=== PATIENT | female | born 1965 | race Caucasian/White ===

== ENCOUNTER → 2016-10-09 | Outpatient (CLI) | payer MEDICAID ==
--- NOTE | 2016-10-09 13:18 | DX ---
Left Hand, Three Views History: Pain post trauma. Injury involves third metacarpal phalangeal and PIP joint and fourth metac arpal phalangeal joint Findings: No fracture or dislocation is identified. There is degenerative cyst formation involving th e heads of the third metacarpal and fourth and fifth proximal phalanges. Impression: Nothing acute identified.
== END ==
LOC: CLAB 11:23
PROVIDERS: ATTEND Family Medicine
DX: M79.642 Pain in left hand (principal)
CPT/HCPCS: 73130-PO

== ENCOUNTER → 2016-12-25 | Outpatient (CLI) | payer MEDICAID | LOC: CIMAGING 11:04 | PROVIDERS: ATTEND Family Medicine | DX: M25.552 Pain in left hip (principal) | CPT/HCPCS: 73502-PO ==

== ENCOUNTER 2017-04-07 12:20 | Emergency (ER) | payer MEDICAID ==
[2017-04-07 12:28] VITALS: BP 115/70; PULSE 69; RESP 18; TEMP 98; O2SAT 97
[2017-04-07] MEDS ORDERED: diphenhydrAMINE 25 MG CAP PO ONE (12:39)
[2017-04-07] MEDS ORDERED: FAMOTIDINE 20 MG TAB PO ONE (12:39)
[2017-04-07] MEDS ORDERED: predniSONE 20 MG TAB PO ONE (12:39)
--- NOTE | 2017-04-07 12:52 | EDPHY ---
H & P Time Seen by Provider: 04/07/17 12:27 HPI/ROS: HPI Bee sting to left upper eyelid. 51-year-old female by private vehicle. She reports yesterday at 5:00 p.m. she was stung by a bee in the left upper medial eyelid and the mid nasal bridge. She presents to the emergency department with complaint of swelling of the left upper eyelid and swelling over her nasal bridge. She gives a history of having an allergy to bee stings no history of anaphylaxis. She states that the upper lid has swollen shut. She denies any ocular involvement. She reports that there was no change in vision prior to her upper lid swelling the eye shut. ROS: Constitutional: No fever, no chills. No weakness. Eyes: No discharge. No changes in vision. As above. ENT: No sore throat. No nasal congestion or rhinorrhea. Respiratory: No cough. No shortness of breath. Cardiac: No chest pain, no palpitations. Gastrointestinal: No abdominal pain, no vomiting, no diarrhea. Musculoskeletal: No back pain. No neck pain. No myalgias or arthralgias. Skin: No rashes. As above. Neurological: No headache. No focal weakness or altered sensation. Past medical history: Rheumatoid arthritis. Social history: Here by herself. Nonsmoker. Physical Exam: General Appearance: Alert, no distress. This patient is responding to questions appropriately and in full sentences. This patient appears well- hydrated and well-nourished. Eyes: Right eye, pupil is equal and round and reactive to light at 3-2 mm. Upper and lower lids of the right eye are unremarkable on gross inspection. The left upper lid is swollen significantly. The left lower lip has a small amount of edema. The swelling from the left upper lid tracks across the medial canthus this in over her nasal bridge. No associated erythema or warmth. The eye is swollen shut. I was unable to open it with gentle traction. No infraorbital paresthesia. No pain on extraocular movements. ENT, Mouth: Mucous membranes are moist. The pharyngeal tissues are unremarkable. No edema or swelling. No asymmetry suggestive of abscess. No erythema or exudates. Respiratory: There are no retractions, lungs are clear to auscultation with good air movement bilaterally. Cardiovascular: Regular rate and rhythm. No murmur. Neurological: Motor sensory function is grossly intact. Cranial nerves are normal. Gait is normal. Skin: Warm and dry, no rashes. Musculoskeletal: Neck is supple and nontender. No lymphadenopathy. No pain on flexion of the neck. Extremities are symmetrical. All joints range without pain or impingement. Psychiatric: No agitation. No depression. Database: EKG: Imaging: Procedures: Emergency department course: Vital signs reviewed and are normal. She does not present with anaphylaxis. Plan is to treat her with steroids and antihistamines. I also do not suspect infection at this time. She was given 60 mg of oral prednisone, 50 mg of oral Benadryl and 40 mg of oral Pepcid in the emergency department. I will send her home with prescriptions for these medications to be taken over the next 3 days. She feels comfortable going home and is in agreement with this plan. Follow- up and return to emergency department precautions discussed. All of her questions were answered. She was discharged in good condition. Differential Diagnosis: The differential diagnosis on this patient includes but is not limited to bee sting to left eye upper eyelid and nasal bridge with associated localized edema. Periorbital versus orbital cellulitis, retained foreign body unlikely. This represents a partial list of diagnoses considered. These considerations are based on history, physical exam, past history, reassessment and diagnostic testing. Smoking Status: Never smoked Constitutional: Initial Vital Signs Temperature (C) 36.6 C 04/07/17 12:25 Heart Rate 69 04/07/17 12:25 Respiratory Rate 18 04/07/17 12:25 Blood Pressure 115/70 04/07/17 12:25 O2 Sat (%) 97 04/07/17 12:25 O2 Delivery Mode Room Air Allergies/Adverse Reactions: No Known Allergies Allergy (Verified 08/12/14 17:06) Home Medications: Medication Instructions Recorded Miscellaneous Medical Supply [NO 1 ea MISC AD 03/24/13 HOME MEDS] SIMPONI 04/07/17 predniSONE [prednisone 20mg (RX)] 60 mg PO DAILY #9 tab 04/07/17 Departure - Departure Disposition: Home, Routine, Self-Care Clinical Impression: Bee sting to left upper eyelid, Bee sting Condition: Good Instructions: Insect Bite or Sting (ED) Additional Instructions: Read and follow provided instructions. Follow-up with your primary care physician in 1-2 days for re-evaluation. Ibuprofen dosin mg every 6 hours with meals for the next 3 days only. Pepcid: 40 mg twice daily, once in the morning and once in the evening for 3 days. This is an ledw-due-cocbctl medication. Benadryl: 50 mg every 6-8 hours for the next 3 days. This is an over-the- counter medication. Ibuprofen dosin mg every 6 hours with meals for the next 3 days only. Return to the emergency department for worsening swelling, pain in your eye, fever, or other serious concerns. Referrals: Tom Luke MD [Primary Care Provider] - As per Instructions Prescriptions: predniSONE [prednisone 20mg (RX)] 60 mg PO DAILY #9 tab
== END 2017-04-07 13:05 | disposition home or self-care (01) ==
LOC: CED 12:20
DX: T63.441A Toxic effect of venom of bees, accidental (unintentional), initial encounter (principal)

== ENCOUNTER → 2017-08-11 | Outpatient (CLI) | payer MEDICAID | LOC: CIMAGING 13:30 | PROVIDERS: ATTEND Family Medicine | DX: N63.22 Unspecified lump in the left breast, upper inner quadrant (principal) | CPT/HCPCS: 76641-PO; G0204 ==

== ENCOUNTER → 2017-09-21 | Outpatient (CLI) | payer MEDICAID | LOC: BMCIMAGING 16:06 | PROVIDERS: ATTEND Internal Medicine Rheumatology | DX: L40.59 Other psoriatic arthropathy (principal) ==

== ENCOUNTER 2018-06-05 14:29 | Emergency (ER) | payer MEDICAID ==
[2018-06-05] MEDS ORDERED: LET GEL TOPICAL 1 EA SYR TP ONE (15:15)
--- NOTE | 2018-06-05 15:20 | EDPHY ---
H & P Time Seen by Provider: 06/05/18 15:03 HPI/ROS: This patient presents with a wound infection to her foot my her report. She explains that 1 week ago while walking barefoot in her yd she open a metal gate that struck the top of her right foot causing an abrasion. Feeling at the wound was minor she did not bother to clean at initially. She reports that over the past 2 days the wound developed redness and 4/10 pain. She has been applying Neosporin and has cleaned it with some soapy water over the past couple days but has not given a thorough scrubbing she admits. She does not have any bony pain is had no difficulty walking. Today she had difficulty putting or boot because her some soft tissue swelling associated with the area of redness, warmth and discomfort. ROS: Constitutional: No fevers or chills. No fatigue Pulmonary: No complaints cardiovascular: No lightheadedness. GI: No nausea vomiting Neuro: No numbness or tingling 5 point review of symptoms is performed and otherwise negative with exception of pertinent positives and negatives listed in HPI and ROS Past Medical/Surgical History: Rheumatoid arthritis on Stelara with 1st dose of that medication Depo injection a few weeks ago Smoking Status: Never smoked Physical Exam: Physical Exam Vital signs are normal. General: No acute distress Lungs: No respiratory distress. Cardiac: Brisk capillary refill is intact throughout. Pulses are 2+ and symmetric in the affected extremity. Skin: No rash or pallor. Extremities: Atraumatic normal except for right foot exam Right foot: Patient has a superficial abrasion 5 mm in diameter subacute superficial surrounded by erythema and Rembrandt edema 2.5 cm in diameter warm to touch with no fluctuance. No underlying bony tenderness. Neuro: Alert and oriented with no sensorimotor deficits in the affected foot. Initial differential diagnosis: Foot cellulitis, atopic dermatitis, contusion Constitutional: Initial Vital Signs Temperature (C) 37.2 C 06/05/18 14:48 Heart Rate 74 06/05/18 14:48 Respiratory Rate 18 06/05/18 14:48 Blood Pressure 109/88 H 06/05/18 14:48 O2 Sat (%) 97 06/05/18 14:48 O2 Delivery Mode Room Air Allergies/Adverse Reactions: No Known Allergies Allergy (Verified 08/12/14 17:06) Home Medications: Medication Instructions Recorded Cephalexin [Keflex (*)] 500 mg PO TID #30 cap 06/05/18 Ustekinumab [Stelara] 06/05/18 MDM/Departure - MDM Medications Given: Discontinued Medications Tetracaine/Epinephrine/Lidocaine (Let Gel Topical) 1 ea TP EDNOW ONE Stop: 06/05/18 15:16 Last Admin: 06/05/18 15:43 Dose: 1 ea ED Course/Re-evaluation: Let solution is applied for anesthesia. This wound was then scrubbed by our tech. Bacitracin and a dressing were plan. I counseled patient regarding wound care Discussion: This patient presents with a superficial wound infection from an abrasion 1 week ago with risk factor for opportunistic infection of Stelara that she takes for rheumatoid arthritis. Patient is instructed in wound care and given instructions to return for any significant increase in redness, onset of discharge her fevers or other concerns. She declined analgesics while here explaining that she would take ibuprofen at home. - Depart Disposition: Home, Routine, Self-Care Clinical Impression: Cellulitis of foot Condition: Good Instructions: Cellulitis (ED) Additional Instructions: Diagnosis: Cellulitis of foot Plan: Warm soapy water soaks daily. Keflex antibiotic ibuprofen and/or tylenol for pain if needed. Return for any significant worsening of symptoms despite the treatment plan. Prescriptions: Cephalexin [Keflex (*)] 500 mg PO TID #30 cap Referrals: Tom Luke MD [Primary Care Provider] - As per Instructions
[2018-06-05 15:45] VITALS: BP 125/66
== END 2018-06-05 15:44 | disposition home or self-care (01) ==
LOC: CED 14:29
DX: L03.115 Cellulitis of right lower limb (principal)

== ENCOUNTER → 2018-08-15 | Outpatient (CLI) | payer MEDICAID | LOC: CIMAGING 09:43 | PROVIDERS: ATTEND Family Medicine | DX: Z12.31 Encounter for screening mammogram for malignant neoplasm of breast (principal) ==